=== PATIENT | female | born 1955 | race Caucasian/White ===

== ENCOUNTER 2024-02-16 12:09 | Emergency (ER) | payer MEDICARE, MEDICAID, SELFPAY ==
[2024-02-16 12:09] VITALS: BMI 24.0
[2024-02-16 12:23] VITALS: BP 152/89; PULSE 83; RESP 16; TEMP 36.8; O2SAT 98
--- NOTE | 2024-02-16 12:23 | EDNOTE_ITS ---
ED Dental RME/HPI General Chief complaint: Dental/Oral/Throat Stated complaint: ABCESS ON TOOTH SINCE YESTERDAY Time Seen by Provider: 02/16/24 12:12 Arrival date/time: 02/16/24 12:09 RME / HPI RME / HPI Narrative: This section includes all my notes and documentations, including HPI, PE, and ED course. Jasbir Shea MD HPI: 68-year-old female here to be evaluated with several days of worsening left- sided dental pain, upper and lower. No fever or chills. No body aches or malaise. No cough or congestion. No sore throat. No other complaints. ROS: All negative except as documented in HPI. Physical Exam: General: Alert and oriented. Appears uncomfortable. Eyes: Conjunctivae and lids clear. ENT: In the mouth, diffuse and severe dental caries noted. Left-sided upper and lower gums remarkable for erythema and edema and tenderness. No fluctuant mass palpable. Neck: Supple. Lungs: No respiratory distress. Skin: Warm and dry. Neuro: Alert and oriented X 3. Prescribed ABX and recommended more care with dentist. Based on my best medical judgment, made decision no further evaluation or treatment indicated at this time. Patient understands and agrees to the discharge instructions customized and printed, see below. Discharge Instructions from Dr. Shea: --After evaluation, your dental pain is due to an underlying infection from your severe and many rotten teeth. --Take Augmentin to help kill the germs causing your infection.? Unless we treat the underlying infection, pain medications won?t work.?? --Ketorolac as needed for pain.? Will work better with the antibiotics.? --Apply Lidocaine as needed.? Soak Lidocaine in a gauze and apply in the area of pain for 15 minutes to help the pain for a couple of hours.?? --Most importantly, see a dentist of your choice on 02/17/2024 for definitive treatment you need not available in the ER.? You will need to call dental offices in all surrounding towns to find a dentist who can see you and treat you right away.? ?Seek immediate medical care with fever or with any concerns. Jasbir Shea MD Related Data Previous Rx's ?Medication ?Instructions ?Recorded hydrocodone 5 mg-acetaminophen 325 1 tab PO BID PRN pain #10 tabs 11/28/20 mg tablet ibuprofen 800 mg tablet 800 mg PO TID PRN pain #30 tabs 11/28/20 ibuprofen 600 mg tablet 600 mg PO Q6H #30 tabs 09/19/23 amoxicillin 875 mg-potassium 1 tab PO BID #20 tabs 02/16/24 clavulanate 125 mg tablet ketorolac 10 mg tablet 10 mg PO Q8H PRN pain 10 days #6 02/16/24 tabs lidocaine HCl 2 % mucosal solution 5 ml PO [id number] PRN pain #100 mL 02/16/24 (Lidocaine Viscous) Allergies Allergy/AdvReac Type Severity Reaction Status Date / Time codeine Allergy Severe DIFF Verified 09/19/23 17:11 BREATHING, ABD PAIN morphine Allergy Severe Hives Verified 09/19/23 17:11 Course Quality Measures none Vital Signs Vital signs: Vital Signs Temperature 98.2 F 02/16/24 12:23 Pulse Rate 83 02/16/24 12:23 Respiratory Rate 16 02/16/24 12:23 Blood Pressure 152/89 H 02/16/24 12:23 Pulse Oximetry (%) 98 02/16/24 12:23 Oxygen Delivery Method Room Air 02/16/24 12:23 Dental / Oral Patient data External records reviewed:: [facility] previous records Clinical information provided by:: patient Social determinants that could affect healthcare access:: none Patient has the following chronic illnesses:: See chart How is presenting disease/condition affected by chronic disease/condition?: uneffected by Evaluation data The following diagnostics were reviewed and interpreted by me:: other (specify) (No diagnostic tests ordered) Lab and/or radiology exams considered but not ordered:: None Interpretation Summary: No diagnostic tests ordered Medications / Prescriptions Medications or Prescriptions considered but not ordered:: None Medication administrations:: None Consultations Consultation(s) initiated? (list below): No Diagnosis Dental Differential Diagnosis: gingival abscess, dental caries, toothache, dental abscess, fracture of tooth and aphthous ulcer Most likely diagnosis given after review of the tests above:: Infected dental caries Admission Indicated Admission indicated?: not indicated Explain why admission is indicated or not indicated:: Admission criteria not met Admission Request Was there a request for admission?: No Disposition Plan Disposition Plan: Discharge Discharge Attestation Discharge Attestation: The patient and all family members were given an opportunity to ask questions and understood the discharge instructions. Discharge instructions specifically effects, indications for sooner follow up or return to the emergency department, and the expected course of current diagnosis. Patient condition: Stable Discharge Plan Plan Patient Disposition: HOME (Self Care) Prescriptions/Referrals Prescriptions/Med Rec: New ketorolac 10 mg tablet 10 mg PO Q8H PRN (Reason: pain) 10 Days Qty: 6 0RF amoxicillin-pot clavulanate 875-125 mg tablet 1 tab PO BID Qty: 20 0RF lidocaine HCl [Lidocaine Viscous] 2 % solution 5 ml PO [id number] PRN (Reason: pain) Qty: 100 0RF No Action ibuprofen 800 mg tablet 800 mg PO TID PRN (Reason: pain) Qty: 30 0RF hydrocodone-acetaminophen 5-325 mg tablet 1 tab PO BID MDD 10 PRN (Reason: pain) Qty: 10 0RF ibuprofen 600 mg tablet 600 mg PO Q6H Qty: 30 0RF Problem List Clinical Impression: Infected dental caries Patient/Caregiver Discharge Instructions Discharge Activity: activity as tolerated Education Materials: ED Dental Cavity, ED Dental Abscess Additional Instructions: Discharge Instructions from Dr. Shea: --After evaluation, your dental pain is due to an underlying infection from your severe and many rotten teeth. --Take Augmentin to help kill the germs causing your infection.? Unless we treat the underlying infection, pain medications won?t work.?? --Ketorolac as needed for pain.? Will work better with the antibiotics.? --Apply Lidocaine as needed.? Soak Lidocaine in a gauze and apply in the area of pain for 15 minutes to help the pain for a couple of hours.?? --Most importantly, see a dentist of your choice on 02/17/2024 for definitive treatment you need not available in the ER.? You will need to call dental offices in all surrounding towns to find a dentist who can see you and treat you right away.? ?Seek immediate medical care with fever or with any concerns. Print Language: [place] Islander Stand Alone Forms: Madeleine Award Info., Patient Portal Info Letter
== END 2024-02-16 12:33 | disposition home or self-care (01) ==
LOC: SERX 12:31
PROVIDERS: Emergency Provider Emergency Medicine
DX: K02.9 Dental caries, unspecified (principal); K04.7 Periapical abscess without sinus
CPT/HCPCS: 99282

== ENCOUNTER 2024-09-17 20:09 | Emergency (ER) | payer MEDICARE, MEDICAID, SELFPAY ==
[2024-09-17 20:11] VITALS: BMI 23.5
[2024-09-17 21:17] VITALS: BP 129/81; PULSE 90; RESP 18; TEMP 36.8; O2SAT 98
--- NOTE | 2024-09-17 21:22 | XR_ITS ---
Examination: AP chest single view TECHNIQUE: AP portable upright chest single view Date and time: September 17, 2024 2143 hours INDICATIONS: Chest pain and shortness of breath today. FINDINGS: Mild prominence left ventricle No pneumonia or pulmonary edema Prominent osteopenia IMPRESSION: Mild prominence left ventricle No pneumonia or pulmonary edema
--- NOTE | 2024-09-17 21:22 | EKG_ITS ---
[facility] Test Date: 2024-09-17 Pat Name: JAVAD CLARK Department: Room: - Gender: Female [employer]: : 1955 Requested By: Christina Blanco Order Number: [id number] Reading MD: Christina Blanco Measurements Intervals [place] Rate: 69 P: 1 FL: 159 QRS: 32 QRSD: 140 T: -9 QT: 417 QTc: 448 Interpretive Statements SINUS RHYTHM RIGHT BUNDLE BRANCH BLOCK [120+ ms QRS DURATION, UPRIGHT V1, 40+ ms S IN I/aVL/V4/V5/V6] MODERATE T-WAVE ABNORMALITY, CONSIDER LATERAL ISCHEMIA [-0.1+ mV T-WAVE IN I/aVL/V5/V6] Compared to ECG 09/02/2022 19:36:30 Right bundle-branch block now present Possible ischemia now present Intraventricular conduction delay no longer present T-wave abnormality still present /store/S0/[id number]/ecg/[id number].pdf
--- NOTE | 2024-09-17 21:22 | XR_ITS ---
Examination: CT abdomen with intravenous contrast CT pelvis with intravenous contrast 2-D coronal reconstructions 2-D sagittal reconstructions Date and time of exam:September 17, 2024 11:10 PM INDICATION: Left lower abdominal pain beginning 2 days ago. CTDI: vol (mGy) 7 DLP: (mGycm) 355 Technique: Multiple axial sections of the abdomen and pelvis have been obtained. 64 slice high-resolution scanner used. 3 mm axial sections have been obtained, post intravenous injection 60 cc Isovue 370 2-D sagittal, coronal reconstructions obtained. Low dose protocols were performed. One or more of the following dose reduction techniques were used; automated exposure control, adjustment of the mA and/or KV according to patient size, use of iterative reconstruction technique. Findings: Liver cysts No pancreatic or adrenal mass Bilateral renal cysts Aorta normal size No bowel obstruction No pericecal inflammatory change Segment of abnormal descending colon, coronal image 42 through 46 inflammatory change and wall thickening No peridiverticular abscess Moderate osteopenia IMPRESSION: Segment of descending colon which appears thickened with inflammatory change, differential would include nonspecific colitis, diverticulitis, tumor of the descending colon not excluded, recommend colonoscopy follow-up
--- NOTE | 2024-09-17 21:42 | PD.EDABDPN ---
ED Abdominal Pain RME/HPI General Chief Complaint: Abdominal Pain Stated complaint: ABD PAIN Time seen by provider: 09/17/24 21:22 Arrival date/time: 09/17/24 20:09 RME / HPI RME / HPI narrative: DR. COBB MAIN ED EVALUATION: 69 y/o female with Hx of Diverticulitis presents to ED c/o LLQ abdominal pain that radiates to the lower back, bloating, and hot flashes x all night. Denies nausea and vomiting. Denies dysuria or other urinary symptoms. Related Data Previous Rx's ?Medication ?Instructions ?Recorded hydrocodone 5 mg-acetaminophen 325 1 tab PO BID PRN pain #10 tabs 11/28/20 mg tablet ibuprofen 800 mg tablet 800 mg PO TID PRN pain #30 tabs 11/28/20 ibuprofen 600 mg tablet 600 mg PO Q6H #30 tabs 09/19/23 amoxicillin 875 mg-potassium 1 tab PO BID #20 tabs 02/16/24 clavulanate 125 mg tablet lidocaine HCl 2 % mucosal solution 5 ml PO [id number] PRN pain #100 mL 02/16/24 (Lidocaine Viscous) ciprofloxacin HCl 500 mg tablet 500 mg PO BID #20 tabs 09/18/24 (Cipro) metronidazole 500 mg tablet 500 mg PO TID #21 tabs 09/18/24 Allergies Allergy/AdvReac Type Severity Reaction Status Date / Time codeine Allergy Severe DIFF Verified 09/17/24 20:11 BREATHING, ABD PAIN morphine Allergy Severe Hives Verified 09/17/24 20:11 Review of Systems Review of Systems Systems Reviewed: All systems reviewed, normal except as documented Past Medical History Past Medical History RESPIRATORY: Positive Asthma GASTROINTESTINAL: Positive Diverticulitis ED Exam Narrative Physical exam: GENERAL APPEARANCE: alert and oriented x 4, well-developed, well-nourished, no acute distress VITALS: All vitals were reviewed and the pulse ox is 98% on room air, which is normal according to my interpretation. HEENT: Normocephalic, atraumatic; pupils equal, round, reactive to light; EOMI; mucous membranes pink, moist; oropharynx clear NECK: Supple LUNGS: CTABL; no wheezes, no rales, no rhonchi HEART: Regular rate, regular rhythm; normal S1, S2; no murmurs ABDOMEN: non distended; normal BS; soft, LLQ tenderness, no guarding, no rebound; no masses, no organomegaly, no hernia BACK: no CVA tenderness EXTREMITIES: atraumatic; no edema NEUROLOGIC: awake; alert and oriented x4; cranial nerves II-XII grossly intact; no focal sensory or motor deficits PSYCHIATRIC: appropriate mood and affect SKIN: warm, dry, normal color; no rashes Course Course Course Narrative: CXR is ordered for determining the etiology of shortness of breath. Quality Measures none Orders Category Date Time Status CT Screening NOW Care 09/17/24 21:22 Active [employer] NOW Care 09/17/24 21:22 Active EKG (ED ONLY) *Do not use* NOW Care 09/17/24 21:[address] abdomen pelvis w con Stat Exams 09/17/24 21:22 Completed EKG (ED Only) Stat Exams 09/17/24 21:22 Draft XR chest 1V portable Stat Exams 09/17/24 21:22 Completed B-Type Natriuretic Peptide Stat Lab 09/17/24 21:31 Completed Blood Culture (Lab) Stat Lab 09/17/24 21:38 Received CBC Stat Lab 09/17/24 21:31 Completed Comprehensive Metabolic Panel Stat Lab 09/17/24 21:31 Completed Lactate (Lactic Acid) Stat Lab 09/17/24 21:31 Completed Lipase Stat Lab 09/17/24 21:31 Completed Magnesium Stat Lab 09/17/24 21:31 Completed Partial Thromboplastin Time Stat Lab 09/17/24 21:31 Completed Procalcitonin Stat Lab 09/17/24 21:31 Completed Prothrombin Time with INR Stat Lab 09/17/24 21:31 Completed Troponin I Stat Lab 09/17/24 21:31 Completed Urinalysis Stat Lab 09/17/24 22:02 Completed Urine Culture Stat Lab 09/17/24 22:02 Received Ciprofloxacin HCl [Ciprofloxacin] Med 09/18/24 00:54 Discontinued 500 mg PO X1 ONE metroNIDAZOLE [Flagyl] Med 09/18/24 00:54 Discontinued 500 mg PO X1 ONE Vital Signs Vital signs: Vital Signs Temperature 98.3 F 09/17/24 21:17 Pulse Rate 90 09/17/24 21:17 Respiratory Rate 18 09/17/24 21:17 Blood Pressure 129/81 09/17/24 21:17 Pulse Oximetry (%) 98 09/17/24 21:17 Oxygen Delivery Method Room Air 09/17/24 21:17 Abdominal Pain MDM MDM Narrative MDM Narrative:: Scribe Attestation: I, Meme Tamayo, am scribing for and in the presence of Dr. Cobb. Provider Notation: Although this document has been carefully reviewed, there may still be some phonetic and other typographical errors.? These errors are purely grammatical due to imperfections in the software program and should not be construed in any way to? compromise the substance of the patient's medical care during this visit. Patient data External records reviewed:: [facility] previous records (Reviewed prior ED records from 02/16/24. Patient was seen for Infected dental caries.) Clinical information provided by:: patient Social determinants that could affect healthcare access:: none Patient has the following chronic illnesses:: Asthma, Diverticulitis How is presenting disease/condition affected by chronic disease/condition?: exacerbated by Evaluation data The following diagnostics were reviewed and interpreted by me:: lab results, radiology exam(s) and EKG tracing(s) (EKG manual reading, my interpretation: sinus rhythm, rate: 69 bpm, Right BBB, mild artifact, mild baseline wander, T-wave inversion in V1-V6.) Lab and/or radiology exams considered but not ordered:: None Interpretation Summary: RADIOLOGY Chest X-Ray: FINDINGS: Mild prominence left ventricle No pneumonia or pulmonary edema Prominent osteopenia IMPRESSION: Mild prominence left ventricle No pneumonia or pulmonary edema Abdomen/Pelvis CT: Findings: Liver cysts No pancreatic or adrenal mass Bilateral renal cysts Aorta normal size No bowel obstruction No pericecal inflammatory change Segment of abnormal descending colon, coronal image 42 through 46 inflammatory change and wall thickening No peridiverticular abscess Moderate osteopenia IMPRESSION: Segment of descending colon which appears thickened with inflammatory change, differential would include nonspecific colitis, diverticulitis, tumor of the descending colon not excluded, recommend colonoscopy follow-up Medications / Prescriptions Medications or Prescriptions considered but not ordered:: None Medication administrations:: Medication Administration History Discontinued Medications Ciprofloxacin (Ciprofloxacin Hcl 250 Mg Tablet) 500 mg PO X1 ONE Stop: 09/18/24 00:55 Metronidazole (Metronidazole 250 Mg Tablet) 500 mg PO X1 ONE Stop: 09/18/24 00:55 See above Consultations Consultation(s) initiated? (list below): No Diagnosis Differential diagnosis abdominal pain: abdominal pain, acute appendicitis, calculus of kidney, constipation, diverticulitis, gastroenteritis, pancreatitis, small bowel obstruction and other (Diverticulosis) Most likely diagnosis given after review of the tests above:: Colitis Admission Indicated Admission indicated?: not indicated Explain why admission is indicated or not indicated:: Patient does not meet admission criteria. Admission Request Was there a request for admission?: No Disposition Plan Disposition Plan: Discharge Discharge Attestation Discharge Attestation: The patient and all family members were given an opportunity to ask questions and understood the discharge instructions. Discharge instructions specifically effects, indications for sooner follow up or return to the emergency department, and the expected course of current diagnosis. Patient condition: Stable Discharge Plan Plan Patient Disposition: HOME (Self Care) Prescriptions/Referrals Prescriptions/Med Rec: New ciprofloxacin HCl [Cipro] 500 mg tablet 500 mg PO BID Qty: 20 0RF metronidazole 500 mg tablet 500 mg PO TID Qty: 21 0RF No Action ibuprofen 800 mg tablet 800 mg PO TID PRN (Reason: pain) Qty: 30 0RF hydrocodone-acetaminophen 5-325 mg tablet 1 tab PO BID MDD 10 PRN (Reason: pain) Qty: 10 0RF ibuprofen 600 mg tablet 600 mg PO Q6H Qty: 30 0RF amoxicillin-pot clavulanate 875-125 mg tablet 1 tab PO BID Qty: 20 0RF lidocaine HCl [Lidocaine Viscous] 2 % solution 5 ml PO [id number] PRN (Reason: pain) Qty: 100 0RF Referrals: No Primary/Family,Physician [Primary Care Provider] - In 1 week Problem List Clinical Impression: Colitis Patient/Caregiver Discharge Instructions Education Materials: Understanding Colitis Print Language: Pakistani Stand Alone Forms: Madeleine Award Info., Patient Portal Info Letter
[2024-09-17 21:54] LABS: Lactate (Lactic Acid) 0.9 mMol/L (0.4-2.0)
[2024-09-17 22:12] LABS: Basophils # (Auto) 0.0 Thou/mm3 (0.0-0.2); Basophils % (Auto) 0 % (0-2.5); Eosinophils # (Auto) 0.0 Thou/mm3 (0.0-0.5); Eosinophils % (Auto) 0 % (0-10); Hematocrit 42.6 % (36.0-46.0); Hemoglobin 14.5 g/dL (12.0-16.0); Immature Granulocytes Auto 0.03 Thou/mm3 (0.00-0.00); Lymphocytes # (Auto) 1.5 Thou/mm3 (1.0-4.8); Lymphocytes % (Auto) 13 % (10-50); Mean Corpuscular HGB Conc 34.0 g/dl (31.0-37.0); Mean Corpuscular Hemoglobin 28.4 pg (25.0-35.0); Mean Corpuscular Volume 83 fL (80-100); Monocytes # (Auto) 0.6 Thou/mm3 (0.0-0.8); Monocytes % (Auto) 5 % (0-12); Neutrophils # (Auto) 9.6 Thou/mm3 (1.8-7.7); Neutrophils % (Auto) 81 % (37-80); Nucleated Red Blood Cell # 0.00 Thou/mm3 (0.00-0.00); Nucleated Red Blood Cell % 0 /100 WBC (0); Platelet Count 227 Thou/mm3 (140-440); RDW Standard Deviation 38.0 fL (36.4-46.3); Red Blood Count 5.11 Miln/mm3 (4.00-5.20); White Blood Count 11.8 Thou/mm3 (3.6-11.0)
[2024-09-17 22:16] VITALS: PULSE 76
[2024-09-17 22:17] LABS: Collection Type, Urine Clean Catch; Squamous Epithelial Cell,Urine 0 /hpf (0-5)
[2024-09-17 22:23] LABS: INR 1.0 (0.9-1.3); Partial Thromboplastin Time 32.9 Seconds (22.0-36.0); Prothrombin Time 11.2 Seconds (9.0-12.2)
[2024-09-17 22:25] LABS: B-Type Natriuretic Peptide 82 pg/mL (0-100)
[2024-09-17 22:27] LABS: Bilirubin,Urine Negative (Negative); Blood,Urine Trace (Negative); Clarity,Urine Clear (Clear/Hazy); Color,Urine Lt-Yellow (Lt Yel-Yel); Glucose, Urine Negative (Negative); Hyaline Casts,Urine 1 /hpf (0-1); Ketones,Urine Negative (Negative); Leukocyte Esterase,Urine Negative (Negative); Nitrite,Urine Negative (Negative); PH,Urine 6.0 (5.0-7.0); Protein,Urine Negative (Neg - Trace); RBC,Urine 1 /hpf (0-3); Specific Gravity,Urine 1.012 (1.001-1.035); Urobilinogen,Urine Negative mg/dL (0.0-1.0); WBC,Urine 1 /hpf (0-5)
[2024-09-17 22:35] LABS: Alanine Aminotransferase 8 U/L (10-49); Albumin, Serum 4.7 gm/dL (3.4-4.8); Anion Gap 11 (7-16); Aspartate Amino Transferase 16 U/L (0-34); BUN/Creatinine Ratio 13 Ratio (12-20); Bilirubin,Total 1.1 mg/dL (0.3-1.2); Blood Urea Nitrogen 10 mg/dL (9-23); Calcium 9.7 mg/dL (8.3-10.6); Calcium (Corrected) 9.7 mg/dL (8.5-10.1); Carbon Dioxide 25.0 mMol/L (20.0-31.0); Chloride 105 mMol/L (98-107); Creatinine (Component) 0.8 mg/dL (0.6-1.3); Estimated Creatinine Clearance 54.1 mL/min (>60); Glucose 97 mg/dL (74-106); Magnesium 2.1 mg/dL (1.6-2.6); Osmolality,Calculated 280 (275-295); Potassium 4.1 mMol/L (3.4-5.1); Sodium 141 mMol/L (136-145); Total Protein 7.2 gm/dL (5.7-8.2); Troponin I < 0.020 ng/mL (0.0-0.045); eGFR > 60 See Note
[2024-09-17 22:36] LABS: Albumin/Globulin Ratio 1.9 (1.2-2.2); Alkaline Phosphatase 78 U/L (46-116); Globulin 2.5 gm/dL (2.3-3.5); Lipase 26 U/L (12-53); Procalcitonin 0.06 ng/ml (0.0-0.49)
[2024-09-17 23:42] VITALS: BP 131/71; PULSE 71; RESP 18; TEMP 36.9; O2SAT 95
[2024-09-18] MEDS: CIPROFLOXACIN HCL 250 MG TABLET 500 MG PO (01:08)
[2024-09-18 01:10] VITALS: BP 140/85; PULSE 79; RESP 16; TEMP 36.7; O2SAT 100
[2024-09-18] MEDS: KETOROLAC INJ 30 MG/ML VIAL 15 MG IVP (01:20)
== END 2024-09-18 01:27 | disposition home or self-care (01) ==
PROVIDERS: Emergency Provider Emergency Medicine
DX: K52.9 Noninfective gastroenteritis and colitis, unspecified (principal); I51.7 Cardiomegaly; I45.10 Unspecified right bundle-branch block
CPT/HCPCS: 36415; 71045; 74177; 80053; 81001; 83605; 83690; 83735; 83880; 84145; 84484; 85025; 85610; 85730; 87040; 87077; 87086; 93005; 96374; 99284; A4649; J1885; Q9967; A9270